=== PATIENT | female | born 1985 | race Two or more races ===

== ENCOUNTER 2016-11-01 17:40 | Emergency (ER) | payer MEDICARE, MEDICAID ==
[~2016-11-01 17:40] MED LIST: ALDACTONE25 M1 PO; AMBIEN10 MG PO; CYMBALTA60 MG; DIFLUNISAL500 MG PO; DOLOBID500 MG; DOXYCYCLINE150 MG PO; EPIPEN0.3 MG/0.1 IM; EPIPEN0.3 MG/0.3 IM; FISH OIL 1,0001 CA1 PO; FLEXERIL10 MG; FLEXERIL10 MG PO; GABAPENTIN600 M1 PO; LEVOTHYROXINE100 MCG PO; LEVOXYL88 MC1 PO; MELATONIN PO; METFORMIN HCL1000 M2 PO; PROZAC10 M1 PO; SINGULAIR10 M1 PO; SYMBICORT 160-1 PUFF INH; TOPIRAMATE100 MG PO; TRAZODONE HCL150 MG PO; VITAMIN D5000 UNIT PO; ZANTAC150 M1 PO; ZANTAC150 MG PO; ZITHROMAX250MG Z-PAK PO; ZYRTEC10 M7 PO
== END 2016-11-01 18:24 ==
LOC: EDMED 17:40
DX: M25.562 Pain in left knee (principal); E11.9 Type 2 diabetes mellitus without complications; E03.9 Hypothyroidism, unspecified; K21.9 Gastro-esophageal reflux disease without esophagitis; J45.909 Unspecified asthma, uncomplicated; F17.210 Nicotine dependence, cigarettes, uncomplicated; Z79.890 Hormone replacement therapy; Z79.899 Other long term (current) drug therapy